=== PATIENT | male | born 1985 | race Caucasian/White ===

== ENCOUNTER 2021-04-25 12:40 | Emergency (ER) | payer OTHER, SELFPAY ==
--- NOTE | ~2021-04-25 | XR_ITS ---
EXAMINATION: XR chest 2V DATE: 04/25/2021 13:15 INDICATION: Shortness of breath and cough TECHNIQUE: PA and lateral views of the chest were obtained. COMPARISON: Chest radiograph dated 10/18/2018 FINDINGS: Persistent mild relative elevation the right hemidiaphragm. Lungs remain clear with no focal airspace opacities, pulmonary edema, pleural effusion or pneumothorax. The cardiomediastinal silhouette is no rmal. Visualized bones and soft tissues are unremarkable. IMPRESSION: 1. No acute cardiopulmonary disease. Reviewed, dictated and finalized at location A.
--- NOTE | 2021-04-25 12:43 | ED.GENADULT ---
HPI - General Adult General Chief complaint: Upper Respiratory Infection Stated complaint: MUSCLE ACHES/CONGESTION/GARCIA/DIARRHEA/DIZZY Time Seen by Provider: 04/25/21 12:43 Source: patient Mode of arrival: ambulatory Limitations: no limitations History of Present Illness HPI narrative: 36-year-old male patient presents to the [facility] with complaints of cold symptoms for the past 2 days. Patient states he has had some body aches, chills, runny nose, congestion, cough and some shortness of breath. Patient does have history of diabetes but states that his sugars at home have been doing well. Patient is vaccinated with the [employer] vaccine for Covid. Denies being around anybody that has been positive for Covid that he is aware of. Denies fevers that he is aware of. Related Data Home Medications Medication Instructions Recorded Confirmed clozapine 100 mg PO USEASDIRECTD 07/08/19 04/25/21 glimepiride 4 mg PO DAILY 07/08/19 04/25/21 haloperidol 10 mg PO USEASDIRECTD 07/08/19 04/25/21 irbesartan 150 mg PO HS 07/08/19 04/25/21 metformin 1,000 mg PO BID 07/08/19 04/25/21 metoprolol tartrate 25 mg PO BID 07/08/19 04/25/21 sertraline 250 mg PO HS 07/08/19 04/25/21 cholecalciferol (vitamin D3) 50 mcg PO DAILY 04/25/21 04/25/21 [Vitamin D3] icosapent ethyl 2 g PO BID 04/25/21 04/25/21 insulin glargine [Lantus Solostar 40 unit SUBCUT BIDAC 04/25/21 04/25/21 U-100 Insulin] insulin glargine [Lantus Solostar 46 unit SUBCUT HS 04/25/21 04/25/21 U-100 Insulin] liraglutide [Victoza 3-Nino] 1.8 mg SUBCUT DAILY 04/25/21 04/25/21 lorazepam 1 mg PO PRN PRN 04/25/21 04/25/21 pioglitazone 15 mg PO DAILY 04/25/21 04/25/21 Allergies Allergy/AdvReac Type Severity Reaction Status Date / Time codeine Allergy Mild RASH Verified 04/25/21 12:46 PROPOXYPHENE NAPSYLATE Allergy Unknown Rash Uncoded 04/25/21 12:46 Review of Systems Review of Systems: CONSTITUTIONAL: Denies fever, chills, or sweats. Positive body aches EYES: Denies visual changes, redness, or discharge. ENT: Positive rhinorrhea, congestion, denies sore throat, or otalgia. CARDIOVASCULAR: Denies chest pain, palpitations, or edema. RESPIRATORY: Positive cough with dyspnea. GASTROINTESTINAL: Denies abdominal pain, nausea, vomiting, positive diarrhea. GENITOURINARY: Denies dysuria or hematuria. SKIN: Denies rash or itching. MUSCULOSKELETAL: Denies back pain, joint pain, or myalgia. NEUROLOGIC: Positive headache, denies numbness, or weakness. PSYCHIATRIC: Denies anxiety or depression. [facility], [facility] Past Medical History Medical History Cellulitis Depression Diabetes Hypercholesterolemia Hypertension Schizophrenia Social History Social History Smoking status: Never smoker Alcohol intake: never Comments At the time of my signature I agree with nursing past medical history, surgical, social, and family history. There is no relevant family history pertinent to the presenting complaint. Exam Narrative: GENERAL: ill-appearing, well-nourished, and in no acute distress. HEAD: Normocephalic, atraumatic. EYES: PERRLA and EOMI. ENT: Nares with erythema and edema noted bilaterally, no rhinorrhea or epistaxis. Mucous membranes moist. Posterior pharynx with no erythema, tonsillar edema, exudates or lesions present. Bilateral TMs are clear no erythema or foreign bodies to the canal. NECK: Supple. No lymphadenopathy CHEST: Patient has inspiratory expiratory wheezing noted to bilateral lower lobes with decreased lung sounds noted to bilateral upper lobes on auscultation. No respiratory distress. HEART: Regular rate and rhythm. No murmur heard. Normal peripheral pulses. ABDOMEN: Soft, nontender, nondistended, normal active bowel sounds. EXTREMITIES: Normal range of motion. No edema. SKIN: Warm, dry, no rash. NEURO: No focal deficits. Alert and oriented x3. Course Reevaluatio
[2021-04-25 12:44] VITALS: BP 141/96; PULSE 113; RESP 24; TEMP 36.7; O2SAT 93
[2021-04-25 12:53] VITALS: PULSE 117; RESP 22; O2SAT 90
[2021-04-25 13:02] LABS: Glucose Point of Care 158 mg/dl (65-105)
[2021-04-25 13:07] VITALS: BP 141/96; PULSE 113; RESP 24; TEMP 36.7; O2SAT 93
[2021-04-25] MEDS: IPRATROPIUM BR 0.02% INH SOLN 0.5 MG/2.5 ML VIAL INHALATION (13:15)
[2021-04-25] MEDS: ALBUTEROL SULFATE NEB 2.5 MG/3 ML INH INHALATION (13:15)
[2021-04-25 15:03] VITALS: PULSE 117; RESP 20; O2SAT 93
[2021-04-26 23:32] LABS: SARS-CoV-2 RNA PCR Positive
== END 2021-04-25 14:08 | disposition home or self-care (01) ==
PROVIDERS: Emergency Provider Nurse Practitioner Family; PCP Hospitalist
DX: Z20.822 Contact with and (suspected) exposure to COVID-19 (principal); E11.9 Type 2 diabetes mellitus without complications; E78.00 Pure hypercholesterolemia, unspecified; I10 Essential (primary) hypertension; F32.9 Major depressive disorder, single episode, unspecified
CPT/HCPCS: 71046; 82948; 87426; 87804; 99213; C9803; G0463; U0003; U0005

== ENCOUNTER 2022-10-31 13:51 | Emergency (ER) | payer OTHER, SELFPAY ==
[2022-10-31 13:56] VITALS: BP 144/100; PULSE 100; RESP 20; TEMP 35.8; O2SAT 96
[2022-10-31 14:09] VITALS: BP 144/100; PULSE 100; RESP 20; TEMP 35.8; O2SAT 96
--- NOTE | 2022-10-31 14:14 | ED.SKABFB ---
HPI - Skin/Abscess/Foreign Bdy General Chief complaint: Wound/Laceration Stated complaint: rt big toe infection Time Seen by Provider: 10/31/22 14:14 Source: patient, RN notes reviewed and old records reviewed Mode of arrival: ambulatory Limitations: no limitations History of Present Illness HPI narrative: 37 year old male accompanied by mother presents to express care with complaints of having an ingrown toenail of right great toe outer aspect of which he cut out on Monday. Patient has purulent drainage from area now with some blood tinged drainage also. Patient is diabetic and on insulin therapy, denies any chills or sweats or known fevers. Patient reports that he has been cleansing his right great toe with hydrogen peroxide and applying antibacterial ointment to his great toe region and has left it open to air, is wearing flip flops. MD complaint: other (patient dug out ingrown toenail right first with purulent drainage.) Onset (ago): day(s) (day 3 of symptoms) Severity scale (1-10): 6 Exacerbating factors: other (palpation ) Treatments prior to arrival: other (cleansed with peroxide and applied neosporin ointment.) Related Data Home Medications Medication Instructions Recorded Confirmed clozapine 100 mg tablet 100 mg PO USEASDIRECTD 07/08/19 10/31/22 haloperidol 10 mg tablet 10 mg PO USEASDIRECTD 07/08/19 10/31/22 irbesartan 150 mg tablet 150 mg PO HS 07/08/19 10/31/22 metformin 1,000 mg tablet 1,000 mg PO BID 07/08/19 10/31/22 metoprolol tartrate 25 mg tablet 25 mg PO BID 07/08/19 10/31/22 cholecalciferol (vitamin D3) 50 50 mcg PO DAILY 04/25/21 10/31/22 mcg (2,000 unit) capsule (Vitamin D3) icosapent ethyl 1 gram capsule 2 g PO BID 04/25/21 10/31/22 lorazepam 1 mg tablet 1 mg PO PRN PRN Anxiety 04/25/21 10/31/22 pioglitazone 15 mg tablet 15 mg PO DAILY 04/25/21 10/31/22 clomipramine 50 mg capsule 50 mg PO DIRECTED 10/31/22 10/31/22 clonazepam 0.5 mg tablet 0.5 mg PO DIRECTED 10/31/22 10/31/22 dulaglutide 1.5 mg/0.5 mL 1.5 mg subcut DIRECTED 10/31/22 10/31/22 subcutaneous pen injector (Trulicity) glimepiride 4 mg tablet 4 mg PO DIRECTED 10/31/22 10/31/22 hydrochlorothiazide 12.5 mg tablet 12.5 mg PO DAILY 10/31/22 10/31/22 hydroxyzine HCl 50 mg tablet 50 mg PO DIRECTED 10/31/22 10/31/22 trazodone 50 mg tablet 50 mg PO DAILY 10/31/22 10/31/22 Allergies Allergy/AdvReac Type Severity Reaction Status Date / Time codeine Allergy Mild RASH Verified 10/31/22 14:22 PROPOXYPHENE NAPSYLATE Allergy Unknown Rash Uncoded 10/31/22 14:22 Review of Systems Review of Systems: CONSTITUTIONAL: Denies fever, chills, or sweats. CARDIOVASCULAR: Denies chest pain, palpitations, or edema. RESPIRATORY: Denies cough or dyspnea. GASTROINTESTINAL: Denies abdominal pain, nausea, vomiting SKIN: Reports redness and swelling. some purulent drainage, from the outer side of right great distal toe, patient cut out ingrown toenail MUSCULOSKELETAL: Denies myalgia. NEUROLOGIC: Denies headache, numbness All systems reviewed & are unremarkable except as noted in HPI and below PMFSH Past Medical History Medical History (Updated 11/01/22 @ 11:15 by Jannette Harper NP) Cellulitis Depression Diabetes History of MRSA infection Hypercholesterolemia Hypertension Schizophrenia Surgical History Surgical History (Updated 10/31/22 @ 14:49 by Jannette Haprer NP) H/O removal of cyst buttocks History of ankle surgery Social History Social History (Updated 10/31/22 @ 14:48 by Jannette Harper NP) Smoking packs per day: 1 Smoking cigarettes per day: 20.0 Years smoked: 16 Smoking pack-years: 16.00 Smoking status: Current every day smoker Tobacco type: cigarettes Alcohol intake: current Alcohol use details: occasional social Substance use type: does not use Gender identity (if verbalized by the patient): Male Comments At time of signature, agree with nursing past medical, surgical, social and fam
== END 2022-10-31 14:51 | disposition home or self-care (01) ==
PROVIDERS: Emergency Provider Registered Nurse; PCP Hospitalist
DX: S91.101A Unspecified open wound of right great toe without damage to nail, initial encounter (principal); E11.9 Type 2 diabetes mellitus without complications; I10 Essential (primary) hypertension; F17.210 Nicotine dependence, cigarettes, uncomplicated; Z79.4 Long term (current) use of insulin; W45.8XXA Other foreign body or object entering through skin, initial encounter
CPT/HCPCS: 99213; G0463